=== PATIENT | female | born 2005 | race Caucasian/White ===

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

== ENCOUNTER 2025-01-20 03:02 | Emergency (ER) | payer OTHER, SELFPAY ==
--- NOTE | ~2025-01-20 | XR_ITS ---
Right Hand Technique: PA, oblique, and lateral views were obtained. Clinical History: Injury Findings: No acute fracture or dislocation is seen. Short fifth metacarpal noted. Osseous alignment i s anatomic. Joint spaces are preserved. Soft tissues are unremarkable. Impression: No acute abnormality. Reviewed, dictated and finalized at location . Impression: No acute abnormality.
[2025-01-20 03:10] VITALS: BP 140/88; PULSE 95; RESP 15; TEMP 36.6; O2SAT 99
[2025-01-20] MEDS: ACETAMINOPHEN 500 MG TABLET 1000 MG PO (03:51)
[2025-01-20] MEDS: KETOROLAC 30 MG/ML VIAL (*BKC) IM (03:52)
--- NOTE | 2025-01-20 05:03 | ED.GENADULT ---
HPI - General Adult General Chief complaint: Extremity Injury, Upper Stated complaint: R hand stuck in belt Time Seen by Provider: 01/20/25 03:10 History of Present Illness HPI narrative: This is a 19-year-old female presenting with a right hand injury. She is at work when her hand got caught in a conveyor belt. She was able to pull out her hand out and now has pain swelling over the hypothenar eminence. No other injuries. Related Data Allergies Allergy/AdvReac Type Severity Reaction Status Date / Time No Known Allergies Allergy Verified 01/20/25 03:03 [facility] Past Medical History Medical History Patient denies medical problems Surgical History Surgical History No pertinent past surgical history Family History Family History Mother Medical history non-contributory Social History Social History (Updated 12/25/23 @ 10:19 by Hazel David APRN) Smoking status: Never smoker Substance use: never Substance use type: does not use Living arrangements: with family Occupation/Education: student Gender identity (if verbalized by the patient): Female Exam Narrative: APPEARANCE: No apparent distress. Head: atraumatic. EYES: EOMI, NOSE: Atraumatic NECK: Trachea midline RESPIRATORY: No increased rate of breathing CARDIOVASCULAR: RRR, ABDOMINAL: Non-distended MUSCULOSKELETAl: Focal exam of the right hand showed bruising and swelling over the hypothenar eminence. Cap refill is less than 2 seconds in all fingers. Flexion extension is intact although limited by pain. NEURO: Alert. Moving 4/4 extremities SKIN:: Warm, dry. Normal color PSYCHIATRIC: Normal affect Course Vital Signs Vital signs: Vital Signs Temperature 97.8 F 01/20/25 03:10 Pulse Rate 95 01/20/25 03:10 Respiratory Rate 15 01/20/25 03:10 Blood Pressure 140/88 01/20/25 03:10 Pulse Oximetry 99 01/20/25 03:10 Oxygen Delivery Room Air 01/20/25 03:10 Temperature 97.8 F 01/20/25 03:10 Pulse Rate 95 01/20/25 03:10 Respiratory Rate 15 01/20/25 03:10 Blood Pressure 140/88 01/20/25 03:10 Pulse Oximetry 99 01/20/25 03:10 Oxygen Delivery Room Air 01/20/25 03:10 Medical Decision Making MDM Narrative Medical decision making narrative: -Course: 19-year-old female presenting with a hand injury from a conveyor belt. Bruising over the hypothenar eminence. Hand x-ray showed no clear fracture although official read will occur in the morning. Family was anxious to get home and was requesting discharge. I told them if there was an over read or any serious injuries we would call them to inform them. Patient discharged. Given return precautions. -DDX includes but is not limited to: Tissue history, bony injury Vital Signs Vital Signs: Vital Signs Temperature 97.8 F 01/20/25 03:10 Pulse Rate 95 01/20/25 03:10 Respiratory Rate 15 01/20/25 03:10 Blood Pressure 140/88 01/20/25 03:10 Pulse Oximetry 99 01/20/25 03:10 Oxygen Delivery Room Air 01/20/25 03:10 Temperature 97.8 F 01/20/25 03:10 Pulse Rate 95 01/20/25 03:10 Respiratory Rate 15 01/20/25 03:10 Blood Pressure 140/88 01/20/25 03:10 Pulse Oximetry 99 01/20/25 03:10 Oxygen Delivery Room Air 01/20/25 03:10 Discharge Plan Discharge Clinical Impression: Hand pain Patient Disposition: Home Condition: Stable Instructions: Antibiotic Form, Arthralgia (ED) Additional Instructions: Please use [id number] Motrin Tylenol for pain. Return if you develop severe pain to her hand, weakness or any new or worsening symptoms. Patient Language: Bhutanese Prescriptions: New ibuprofen 800 mg tablet 800 mg PO TID PRN (Reason: pain) 7 Days Qty: 21 0RF acetaminophen 500 mg tablet 1,000 mg PO TID PRN (Reason: tova) 7 Days Qty: 42 0RF Follow-up/Referrals: PHYSICIAN,GENETIC ENGINEER [Primary Care Provider] - Stand Alone Forms: Work/School Release IP
[2025-01-20 05:44] VITALS: BP 132/83; PULSE 88; RESP 13; O2SAT 98
[2025-01-20 05:45] VITALS: BP 132/83; PULSE 88; RESP 13; O2SAT 98
== END 2025-01-20 05:47 | disposition home or self-care (01) ==
PROVIDERS: Emergency Provider Emergency Medicine
DX: S69.91XA Unspecified injury of right wrist, hand and finger(s), initial encounter (principal); W31.89XA Contact with other specified machinery, initial encounter
CPT/HCPCS: 73130; 96372; 99283; A9270; J1885

== ENCOUNTER 2025-01-23 15:24 | Emergency (ER) | payer OTHER, SELFPAY ==
--- NOTE | 2025-01-23 15:31 | ED.UPPEXIN ---
HPI - Extremity Injury (Upper) General Chief Complaint: Extremity Injury, Upper Stated Complaint: right hand injury Time Seen by Provider: 01/23/25 15:47 Source: patient and RN notes reviewed Mode of arrival: ambulatory Limitations: no limitations History of Present Illness HPI narrative: 19-year-old female presents with concern for right hand pain. Reports 3 days ago the hand got caught in a conveyor belt at work. She went to the hospital, had x-rays which were negative. She was given ibuprofen and Tylenol but she has not taken it much because she does not like to take pills. complaint: injury to: right and hand Related Data Allergies Allergy/AdvReac Type Severity Reaction Status Date / Time No Known Allergies Allergy Verified 01/20/25 03:03 Review of Systems Review of Systems: CONSTITUTIONAL: Denies malaise, chills, sweats, or fever. SKIN: Denies rash or itching, open skin, laceration, abrasion, redness, warmth, swelling. MUSCULOSKELETAL: Reports right hand pain and bruising NEUROLOGIC: Denies numbness, weakness All systems reviewed & are unremarkable except as noted in HPI and below PMFSH Past Medical History Medical History Patient denies medical problems Surgical History Surgical History No pertinent past surgical history Family History Family History Mother Medical history non-contributory Social History Social History (Updated 12/25/23 @ 10:19 by Hazel David APRN) Smoking status: Never smoker Substance use: never Substance use type: does not use Living arrangements: with family Occupation/Education: student Gender identity (if verbalized by the patient): Female Comments At time of signature, agree with nursing past medical, surgical, social and family history. There is no relevant family history pertinent to the presenting complaint Exam Narrative: GENERAL: Well-appearing, well-nourished, and in no acute distress. HEAD: Normocephalic EYES: PERRLA, conjunctivae clear NECK: Supple. CHEST: Speaks in full sentences. No respiratory distress. HEART: Regular rate and rhythm. Normal and equal peripheral pulses. EXTREMITIES: Right hand and digits of hand have normal strength and sensation. 5/5 strength with digit flexion, extension. Range of motion normal. No clubbing, cyanosis, or edema noted. Proximal Dorsal hand tenderness and ecchymosis noted. Skin intact. Normal digital cascade with flexion of fingers, median, ulnar and radial nerve intact. Normal sensation of each side of finger. Can perform 'okay' sign, 'cross over finger test of index and middle fingers' and 'thumbs up' sign. No scissoring. Normal thumb opposition. Good capillary refill and radial pulse. Distal capillary refill less than 3 seconds. SKIN: Warn, dry, intact, pink. No rash NEURO: Alert and oriented x3. PSYCH: Normal mood and affect Course Course Emergency Course: Patient is aware of diagnosis, understands and agrees to treatment plan. Anticipatory guidance given. Patient agrees to follow-up as directed and is aware of reasons to seek care at the emergency department. Portions of this record may have been created with voice recognition software Level of Care: Express Care Visit Vital Signs Vital signs: Reviewed. Critical Care Time Critical Care Time Critical Care Time: No Discharge Plan Discharge Clinical Impression: Contusion Patient Disposition: Home Condition: Stable Instructions: Contusion in Adults (ED) Additional Instructions: Avoid activities that cause pain until the pain subsides. Ice to the area 20-30 minutes 4-6 times a day Elevate above heart Elastic wrap as directed for comfort for the next 5-7 days Tylenol for lesser pain Ibuprofen regularly for the next 2-3 days for the inflammation Follow up with your primary care provider if the condition is not improving within 1 week. If the condition worsens with numbness, tingling, decrease sensation with weakness seek treatment in the emergency room immediately. Patient Language: Austrian Prescriptions: No Action ibuprofen 800 mg tablet 800 mg PO TID PRN (Reason: pain) 7 Days Qty: 21 0RF acetaminophen 500 mg tablet 1,000 mg PO TID PRN (Reason: tova) 7 Days Qty: 42 0RF Follow-up/Referrals: PHYSICIAN,SOLAR/[employer] SALES [Primary Care Provider] - Stand Alone Forms: Work/School Release IP Time of Disposition: 15:55
[2025-01-23 15:38] VITALS: BP 131/93; PULSE 98; RESP 14; TEMP 37.1; O2SAT 99
== END 2025-01-23 16:04 | disposition home or self-care (01) ==
PROVIDERS: Emergency Provider Nurse Practitioner
DX: S60.221D Contusion of right hand, subsequent encounter (principal); W31.89XD Contact with other specified machinery, subsequent encounter
CPT/HCPCS: 99212; G0463